=== PATIENT | female | born 1950 | race Two or more races ===

== ENCOUNTER 2017-08-09 11:07 | Outpatient (CLI) | payer OTHER ==
[~2017-08-09 11:07] MED LIST: COPAXONE20 MG/KIT SQ; KLONOPIN1 MG/TAB PO; LISINOPRIL20 MG PO; NEURONTIN600 MG PO; PROZAC10 MG PO; SINVASTATIN; [UNRECOGNIZED DRUG - OTHER]
== END 2017-08-09 11:09 | disposition home or self-care (01) ==
LOC: SONOGRAMA 11:07
DX: N28.9 Disorder of kidney and ureter, unspecified (principal)

== ENCOUNTER 2017-09-06 10:33 | Outpatient (CLI) | payer OTHER | END 2017-09-06 10:47 | disposition home or self-care (01) | LOC: NUCLEAR 10:33 | DX: N19 Unspecified kidney failure (principal); N13.9 Obstructive and reflux uropathy, unspecified | CPT/HCPCS: 78708; A9539; J1940 ==

== ENCOUNTER 2018-03-08 10:39 | Emergency (ER) | payer OTHER ==
[~2018-03-08] VITALS: Ht 154.9 cm; Wt 72.6 kg
[2018-03-08] MEDS ORDERED: BACTRIM DS TAB1 EACH PO (20:50)
== END 2018-03-08 20:45 | disposition home or self-care (01) ==
LOC: ER 10:39
DX: R53.1 Weakness (principal); M62.81 Muscle weakness (generalized); N39.0 Urinary tract infection, site not specified

== ENCOUNTER 2018-03-29 12:34 | Outpatient (CLI) | payer OTHER ==
[~2018-03-29 12:34] MED LIST changes: +BACTRIM DS TAB1 EACH PO
== END 2018-03-29 12:42 | disposition home or self-care (01) ==
LOC: MAMO-SONO 12:34
DX: Z12.31 Encounter for screening mammogram for malignant neoplasm of breast (principal); Z87.898 Personal history of other specified conditions; N60.11 Diffuse cystic mastopathy of right breast; N60.12 Diffuse cystic mastopathy of left breast

== ENCOUNTER 2018-03-29 13:52 | Outpatient (CLI) | payer OTHER | END 2018-03-29 14:03 | disposition home or self-care (01) | LOC: NUCLEAR 13:52 | DX: M81.0 Age-related osteoporosis without current pathological fracture (principal) ==

== ENCOUNTER 2018-05-22 11:31 | Outpatient (CLI) | payer OTHER | END 2018-05-22 11:48 | disposition home or self-care (01) | LOC: NUCLEAR 11:31 | DX: R07.89 Other chest pain (principal); I10 Essential (primary) hypertension; I52 Other heart disorders in diseases classified elsewhere ==

== ENCOUNTER 2018-07-05 08:49 | Outpatient (CLI) | payer OTHER | END 2018-07-05 20:31 | disposition home or self-care (01) | LOC: LAB 08:49 | DX: D64.0 Hereditary sideroblastic anemia (principal); J11.1 Influenza due to unidentified influenza virus with other respiratory manifestations ==

== ENCOUNTER 2018-10-22 10:29 | Outpatient (CLI) | payer OTHER | END 2018-10-22 10:43 | disposition home or self-care (01) | LOC: LAB 10:29 | DX: K29.00 Acute gastritis without bleeding (principal); R10.9 Unspecified abdominal pain; K81.9 Cholecystitis, unspecified ==

== ENCOUNTER 2018-11-12 07:36 | Outpatient (CLI) | payer OTHER | END 2018-11-12 09:11 | disposition home or self-care (01) | LOC: LAB 07:36 | DX: R10.84 Generalized abdominal pain (principal); K59.00 Constipation, unspecified; E07.89 Other specified disorders of thyroid; N28.89 Other specified disorders of kidney and ureter; K85.90 Acute pancreatitis without necrosis or infection, unspecified; G35 Multiple sclerosis ==

== ENCOUNTER 2019-04-22 10:15 | Emergency (ER) | payer OTHER ==
[~2019-04-22] VITALS: Ht 152.4 cm; Wt 80.7 kg
== END 2019-04-22 17:06 | disposition home or self-care (01) ==
LOC: ER 10:15
DX: S01.122A Laceration with foreign body of left eyelid and periocular area, initial encounter (principal); S29.8XXA Other specified injuries of thorax, initial encounter; R42 Dizziness and giddiness; W22.8XXA Striking against or struck by other objects, initial encounter; Y93.89 Activity, other specified; Y92.89 Other specified places as the place of occurrence of the external cause; Y99.8 Other external cause status

== ENCOUNTER 2019-05-01 09:52 | Emergency (ER) | payer OTHER ==
[~2019-05-01] VITALS: Ht 152.4 cm; Wt 77.1 kg
== END 2019-05-01 11:28 | disposition home or self-care (01) ==
LOC: ER 09:52
DX: Z48.02 Encounter for removal of sutures (principal)

== ENCOUNTER 2019-07-15 12:38 | Outpatient (CLI) | payer OTHER | END 2019-07-15 12:44 | disposition home or self-care (01) | LOC: MAMO-SONO 12:38 | DX: Z12.31 Encounter for screening mammogram for malignant neoplasm of breast (principal); Z87.898 Personal history of other specified conditions; N60.11 Diffuse cystic mastopathy of right breast; N60.12 Diffuse cystic mastopathy of left breast ==

== ENCOUNTER 2021-08-23 10:22 | Outpatient (CLI) | payer OTHER | END 2021-08-23 10:27 | disposition home or self-care (01) | LOC: MAMO-SONO 10:22 | PROVIDERS: ATTEND Specialist | DX: N60.11 Diffuse cystic mastopathy of right breast (principal); N60.12 Diffuse cystic mastopathy of left breast; Z12.31 Encounter for screening mammogram for malignant neoplasm of breast ==

== ENCOUNTER 2022-10-11 10:24 | Outpatient (CLI) | payer OTHER | END 2022-10-11 10:30 | disposition home or self-care (01) | LOC: RAD 10:24 | PROVIDERS: ATTEND Internal Medicine Cardiovascular Disease | DX: M12.9 Arthropathy, unspecified (principal) ==

== ENCOUNTER 2022-10-19 10:39 | Outpatient (CLI) | payer OTHER | END 2022-10-19 10:43 | disposition home or self-care (01) | LOC: MAMO-SONO 10:39 | PROVIDERS: ATTEND Specialist | DX: Z12.31 Encounter for screening mammogram for malignant neoplasm of breast (principal) ==

== ENCOUNTER 2022-10-27 11:40 | Outpatient (CLI) | payer OTHER | END 2022-10-27 11:48 | disposition home or self-care (01) | LOC: RAD 11:40 | PROVIDERS: ATTEND Internal Medicine Cardiovascular Disease | DX: M17.9 Osteoarthritis of knee, unspecified (principal) ==

== ENCOUNTER 2022-10-28 07:23 | Outpatient (CLI) | payer OTHER | END 2022-10-28 07:25 | disposition home or self-care (01) | LOC: NUCLEAR 07:23 | PROVIDERS: ATTEND Internal Medicine Cardiovascular Disease | DX: I87.2 Venous insufficiency (chronic) (peripheral) (principal) ==

== ENCOUNTER 2022-11-09 13:14 | Outpatient (CLI) | payer OTHER | END 2022-11-09 13:17 | disposition home or self-care (01) | LOC: NUCLEAR 13:14 | PROVIDERS: ATTEND Specialist | DX: M81.0 Age-related osteoporosis without current pathological fracture (principal) ==

== ENCOUNTER 2023-01-04 11:50 | Outpatient (CLI) | payer OTHER | END 2023-01-04 11:56 | disposition home or self-care (01) | LOC: SONOGRAMA 11:50 | PROVIDERS: ATTEND Internal Medicine Nephrology | DX: E11.65 Type 2 diabetes mellitus with hyperglycemia (principal); N18.32 Chronic kidney disease, stage 3b; R79.89 Other specified abnormal findings of blood chemistry ==

== ENCOUNTER 2023-12-13 13:02 | Outpatient (CLI) | payer OTHER | END 2023-12-13 13:30 | disposition home or self-care (01) | LOC: MAMO-SONO 13:02 | PROVIDERS: ATTEND Specialist | DX: N60.11 Diffuse cystic mastopathy of right breast (principal); N60.12 Diffuse cystic mastopathy of left breast; Z12.31 Encounter for screening mammogram for malignant neoplasm of breast ==

== ENCOUNTER 2025-01-01 11:17 | Outpatient (CLI) | payer OTHER | END 2025-01-01 11:20 | disposition home or self-care (01) | LOC: MAMO-SONO 11:17 | DX: N60.11 Diffuse cystic mastopathy of right breast (principal); N60.12 Diffuse cystic mastopathy of left breast; Z12.31 Encounter for screening mammogram for malignant neoplasm of breast ==

== ENCOUNTER → 2025-01-01 | Outpatient (CLI) | payer OTHER | END | disposition home or self-care (01) | LOC: NUCLEAR 10:24 | PROVIDERS: ATTEND Specialist | DX: M81.0 Age-related osteoporosis without current pathological fracture (principal) ==